=== PATIENT | male | born 1985 | race Caucasian/White ===

== ENCOUNTER → 2017-02-19 | Outpatient (CLI) | payer BC | LOC: COL.VAS 07:57 | DX: S46.291A Other injury of muscle, fascia and tendon of other parts of biceps, right arm, initial encounter (principal); T14.90 Injury, unspecified; X58.XXXA Exposure to other specified factors, initial encounter; Y93.79 Activity, other specified sports and athletics ==

== ENCOUNTER 2019-06-08 16:07 | Emergency (ER) | payer OTHER ==
[~2019-06-08] VITALS: Ht 190.5 cm; Wt 131.8 kg
[2019-06-08 16:19] VITALS: TEMP 99.4
[2019-06-08 16:57] LABS: COLLECTION METHOD CLEAN CATCH
[2019-06-08] MEDS ORDERED: XANAX 0.5MG0.5 MG PO (17:02)
[2019-06-08] MEDS ORDERED: LEXAPRO20 MG PO (17:02)
[2019-06-08] MEDS ORDERED: SUDAFED 12 HOU120 MG PO (17:02)
[2019-06-08] MEDS ORDERED: FLONASEALLERGY NS (17:02)
[2019-06-08 17:12] LABS: BASO % 0.5 % (0.0-2.0); EOS # 0.1 (0.0-0.7); EOS % 1.1 % (0-4.0); GRAN # 5.8 (1.4-6.5); GRAN % 70.4 % (42.2-75.2); HEMATOCRIT 47.7 % (42.0-52.0); HEMOGLOBIN 14.2 g/dl (13.5-18.0); LYMPH # 1.7 (1.2-3.4); MEAN CELL VOLUME 77 fl (80.0-100.0); MEAN CORPUSCULAR HEMOGLOBIN 23 pg (27.0-31.0); MEAN CORPUSCULAR HGB CONC 30 g/dl (33.0-37.0); MEAN PLATELET VOLUME 9.8 fl (7.4-10.4); MONO # 0.6 (0.1-0.6); MONO % 6.8 % (1.7-9.3); PLATELET COUNT 215 K/mm3 (130-400); REDCELL DISTRIBUTION WIDTH-CV 18.6 % (11.5-14.5)
[2019-06-08 17:15] LABS: TRICYCLIC ANTIDEPRESS URINE NEGATIVE
[2019-06-08 17:16] LABS: MUCOUS Present /lpf; PH 7 (5-8); SQUAMOUS EPITHELIAL 0-2 /hpf; URINE APPEARANCE Hazy; URINE BACTERIA None Seen /hpf; URINE BILIRUBIN Negative (NEGATIVE); URINE BLOOD Negative (NEGATIVE); URINE COLOR Yellow; URINE GLUCOSE Negative (NEGATIVE); URINE KETONE Negative (NEGATIVE); URINE LEUKOCYTE ESTERASE Negative (NEGATIVE); URINE NITRATE Negative (NEGATIVE); URINE PROTEIN(semi-quant) 1+ (NEGATIVE); URINE RBC 0-2 /hpf
[2019-06-08 17:22] LABS: ALANINE AMINOTRANSFERASE 106 U/L (21-72); ALBUMIN 4.8 gm/dL (3.5-5.0); ALKALINE PHOSPHATASE 100 U/L (50-136); ANION GAP 15 mmol/L (7-16); AST,SGOT 100 U/L (15-37); BILIRUBIN,TOTAL 1.3 mg/dL (0.0-1.0); BLOOD UREA NITROGEN 15 mg/dL (9-20); CALCIUM 9.8 mg/dL (8.4-10.2); CARBON DIOXIDE 25 mmol/L (22-30); CHLORIDE 101 mmol/L (98-107); CREATININE, serum 0.99 (0.66-1.25); GLUCOSE 98 mg/dL (74-106); POTASSIUM 4.2 mmol/L (3.4-5.0); SODIUM 140 mmol/L (137-145); TOTAL PROTEIN 9.2 gm/dL (6.4-8.2)
[2019-06-08 17:24] LABS: ACETAMINOPHEN < 10 ug/mL (10-30); ALCOHOL(ethanol),MEDICAL < 10 mg/dL; SALICYLATE < 1.0 mg/dL
[2019-06-08 19:36] VITALS: BP 125/81; PULSE 85
== END 2019-06-08 19:41 | disposition home or self-care (01) ==
LOC: COL.ER 16:07
PROVIDERS: Physician Assistant
DX: F41.9 Anxiety disorder, unspecified (principal); F31.9 Bipolar disorder, unspecified; Z79.51 Long term (current) use of inhaled steroids

== ENCOUNTER 2020-11-13 00:05 | Inpatient (IN) | payer OTHER ==
[~2020-11-13] VITALS: Ht 190.5 cm; Wt 160.0 kg
[2020-11-13] VITALS (7 sets, daily range): BP systolic 145–166; BP diastolic 78–106; PULSE 87–113; TEMP 97.6–98.7
[~2020-11-13 00:05] MED LIST: FLONASEALLERGY NS; LEXAPRO20 MG PO; SUDAFED 12 HOU120 MG PO; XANAX 0.5MG0.5 MG PO
[2020-11-13 01:05] LABS: BASO # 0.1 (0.0-0.2); BASO % 0.6 % (0.0-2.0); EOS # 0.2 (0.0-0.7); EOS % 2.4 % (0-4.0); GRAN # 6.3 (1.4-6.5); GRAN % 73.3 % (42.2-75.2); HEMATOCRIT 41.9 % (42.0-52.0); HEMOGLOBIN 13.5 g/dl (13.5-18.0); LYMPH # 1.4 (1.2-3.4); LYMPH % 16.2 % (20.0-51.0); MEAN CELL VOLUME 90 fl (80.0-100.0); MEAN CORPUSCULAR HEMOGLOBIN 29 pg (27.0-31.0); MEAN CORPUSCULAR HGB CONC 32 g/dl (33.0-37.0); MEAN PLATELET VOLUME 9.8 fl (7.4-10.4); MONO # 0.6 (0.1-0.6); MONO % 7.3 % (1.7-9.3); PLATELET COUNT 205 K/mm3 (130-400); RED BLOOD COUNT 4.64 M/mm3 (4.20-5.60)
[2020-11-13 01:13] LABS: ALANINE AMINOTRANSFERASE 123 U/L (4-49); ALBUMIN 4.5 gm/dL (3.5-5.0); ALKALINE PHOSPHATASE 149 U/L (50-136); ANION GAP 11 mmol/L (7-16); AST,SGOT 88 U/L (15-37); BLOOD UREA NITROGEN 14 mg/dL (9-20); C-REACTIVE PROTEIN 7.4 mg/dL (0.0-0.9); CALCIUM 9.1 mg/dL (8.4-10.2); CARBON DIOXIDE 22 mmol/L (22-30); CHLORIDE 105 mmol/L (98-107); CREATININE, serum 1.02 (0.66-1.25); GLUCOSE 144 mg/dL (74-106); LIPASE 43 U/L (23-300); POTASSIUM 4.3 mmol/L (3.4-5.0); SODIUM 138 mmol/L (137-145); TOTAL PROTEIN 8.8 gm/dL (6.4-8.2)
[2020-11-13 01:21] LABS: TROPONIN-I < 0.012 ng/mL (0.000-0.035)
[2020-11-13] MEDS ORDERED: SEROQUEL 1100 MG/TAB PO (03:42)
--- NOTE | 2020-11-13 07:09 | NUR ---
Patient arrived to floor around 0400. Oriented patient to room. Patient continues to have pain to right side. Explained that it could be muscle pain because all the scans did not show a fracture. Xanax and norco given. He gets short of air and becomes anxious when he is up and moving around the room. IV to right AC. All admissions assessments completed. No other changes at this time. Call light within reach.
--- NOTE | 2020-11-13 08:30 | NUR ---
Assessment complete. Pt sitting up in bed, A&O x 4, reports pain to right side 6 out of 10 with sharp pangs intermittently with deep breath and certain movement. Pt reports the pain was less when standing and ambulating in room. Pt also reports dyspnea is improved today matt with activity. IVF's infusing per orders through right AC site without s/s of complications. O2 at 2 L/min via NC. No further needs reported. Call light in reach.
--- NOTE | 2020-11-13 13:36 | NUR ---
IVF rate decreased to 75 ml/hr per orders. Pt reports pain to right side improving but still with sharp pangs intermittently, PRN medication administered per orders. No further needs reported. Call light in reach.
--- NOTE | 2020-11-13 17:31 | NUR ---
BP increasing again with DBP at 105, pt having surge of pain after coughing spell. O2 sats at 88% on 2 L/min via NC. O2 increased to 5 L/min via NC to get sats up to 91%. Pt encouraged to take deep breaths through the nose but pt falling asleep and snoring and stating that it hurts to take a deep breath. Provider notified.
--- NOTE | 2020-11-13 18:41 | NUR ---
Report with ASHLYN Porter.
--- NOTE | 2020-11-13 19:33 | NUR ---
Patient COVID result is negative. Patient moved from room 302 to room 357 at this time. He is able to ambulate to wheelchair. He is on 5 liters oxygen via nasal cannula and shows mild dyspnea on exertion, which quickly disappears with rest. He states his pain is managed at this time. Fine crackles are heard in lung bases. No edema is present. Patient is oriented to his new room and call light is in reach. Will continue to monitor.
--- NOTE | 2020-11-13 20:00 | NUR ---
INSTRUCTED PATIENT ON DEEP BREATHING AND COUGHING. ALSO DISCUSSED DIAPHRAGMATIC BREATHING TO DECREASE OXYGEN NEEDS. PATIENT RETURNED DEMONSTRATION AND VERBALIZED UNDERSTANDING OF TECHNIQUES.
--- NOTE | 2020-11-14 02:30 | NUR ---
Patient complains of increased pain under right ribs. PRN [place] is administered. Patient requests a Lidocaine patch which is similar to what he uses at home for similar pains; Order is obtained and patch applied to right side. Fluids currently infusing into right a/c IV and patient still wears 5 liters 02. Call light in reach.
[2020-11-14 03:26] VITALS: BP 152/81; PULSE 86; TEMP 97.8
[2020-11-14 05:52] LABS: BASO % 0.3 % (0.0-2.0); EOS # 0.3 (0.0-0.7); GRAN # 7.7 (1.4-6.5); GRAN % 82.4 % (42.2-75.2); HEMATOCRIT 38.2 % (42.0-52.0); LYMPH # 0.9 (1.2-3.4); LYMPH % 9.4 % (20.0-51.0); MEAN CELL VOLUME 93 fl (80.0-100.0); MEAN CORPUSCULAR HEMOGLOBIN 29 pg (27.0-31.0); MEAN CORPUSCULAR HGB CONC 31 g/dl (33.0-37.0); MEAN PLATELET VOLUME 10.5 fl (7.4-10.4); MONO # 0.4 (0.1-0.6); MONO % 4.7 % (1.7-9.3); PLATELET COUNT 153 K/mm3 (130-400); RED BLOOD COUNT 4.11 M/mm3 (4.20-5.60); REDCELL DISTRIBUTION WIDTH-CV 15.5 % (11.5-14.5)
[2020-11-14 06:02] LABS: CALCIUM 8.5 mg/dL (8.4-10.2); CREATININE, serum 0.77 (0.66-1.25); MAGNESIUM 1.8 mg/dL (1.6-2.3); POTASSIUM 4.1 mmol/L (3.4-5.0)
[2020-11-14 08:34] VITALS: BP 135/74; PULSE 103; TEMP 98.8
--- NOTE | 2020-11-14 08:49 | NUR ---
Assessment complete. Patient relaxingin bed at this time. States he feels okay, the right sided pain still lingers and he feels as if he in compensating and making it a little worse. He stated the lidocaine patch would be enough for now but would request meds if needed. IV site is CD&I, IVF continue to infuse. States he feels as if his allergies are acting up and requested allergy meds, I will request this during rounds. No other complaints at this time, pt currently satting 94 on 5L NC. Will continue to monitor. Call light is in reach.
[2020-11-14 11:37] VITALS: BP 142/80; PULSE 109; TEMP 98.1
--- NOTE | 2020-11-14 12:46 | NUR ---
Field Interviewer met with patient to discuss discharge planning. Patient lives in [place] with his Sheila (ph#[phone]) and their seven year old daughter Ashley. Patient sees Janice Timmons NP at [facility] for primary care and obtains medications from [facility]. Patient confirms he does not have active insurance coverage at this time. Patient states he was supposed to have a phone interview for a job tomorrow at 1130. Patient does not use any DME at home but is currently requiring oxygen. Patient is normally independent with ADLS. Patient does not have Advance Directives. Patient plans to return home upon discharge. SW left a message for patient's , Sheila and will continue to follow.
--- NOTE | 2020-11-14 13:29 | NUR ---
First visit from the software deployment engineer. No needs right now.
[2020-11-14 15:44] VITALS: BP 134/73; PULSE 110; TEMP 98.1
--- NOTE | 2020-11-14 17:38 | NUR ---
Patient has had an uneventful day. Rib pain and headache have been managed but he states he still feels the congestion pressure in his head that is making him uncomfortable. I assured him he had another zyrtec he could take prior to bedtime and PRN tylenol in addition to his [place]. He has minimal complaints otherwise. States that he gets a little SOB with movement but it is managable. No other needs. Call light is in reach.
--- NOTE | 2020-11-14 18:48 | NUR ---
Bedside shift report received from ASHLYN Mathur. Patient is currently awake in bed on his iPad. He is on 5 liters oxygen and states his pain is well managed at the moment.
--- NOTE | 2020-11-14 20:00 | NUR ---
Assessment complete. Patient has no pain at this time. He wears 5 liters oxygen and does not show signs of respiratory distress. He is assisted with showering and linens are changed. Call light in reach, no new concerns.
[2020-11-14 20:49] VITALS: BP 147/85; PULSE 100; TEMP 98.4
--- NOTE | 2020-11-14 22:24 | NUR ---
Patient pushes call button and states he is "having an anxiety attack" at this time. He also complains that his right rib pain is back. PRN [place] and Xanax administered.
[2020-11-15] VITALS (7 sets, daily range): BP systolic 127–148; BP diastolic 70–89; PULSE 87–107; TEMP 97.8–98.7
--- NOTE | 2020-11-15 00:57 | NUR ---
Patient complains of increased SOA at this time. He is still on 5 liters oxygen via nasal cannula; His repirations are quicker and more shallow but he does not appear to be in respiratory distress. AGUILAR Fonseca notified and a STAT ABG order is obtained. Will continue to monitor.
[2020-11-15 01:25] LABS: ARTERIAL BLD GAS O2 SATURATION 93.4 % (92-100); ARTERIAL BLD GAS TCO2 CT 25.7; ARTERIAL BLOOD GAS BASE EXCESS -1.8 (-2-2); ARTERIAL BLOOD GAS HCO3 24.3 meq/L (22-26); ARTERIAL BLOOD GAS PCO2 46.6 mmHg (35-45); ARTERIAL BLOOD GAS PO2 69.3 mmHg (80-100); ARTERIAL BLOOD GAS pH 7.34 (7.35-7.45)
--- NOTE | 2020-11-15 03:56 | NUR ---
DUO TO ABG RESULTS AUREA SHEIKH ORDERED BIPAP 16/8 AND FI02 AT 50% THEN TO BE TITRATED PER RT. PT IS ON VISION NI WELL WITH NO DISTRSES NOTED ON A MEDIUM MASK, 16/8, RATE OF 18, AND 45% FI02. WILL OBTAIN ABG AT 0500 TO ASSESS BIPAP AND SETTINGS FOR THIS PT.
[2020-11-15 05:38] LABS: ARTERIAL BLD GAS O2 SATURATION 90.9 % (92-100); ARTERIAL BLD GAS TCO2 CT 29.5; ARTERIAL BLOOD GAS BASE EXCESS 2.2 (-2-2); ARTERIAL BLOOD GAS PCO2 48.5 mmHg (35-45); ARTERIAL BLOOD GAS PO2 59.3 mmHg (80-100); ARTERIAL BLOOD GAS pH 7.38 (7.35-7.45)
--- NOTE | 2020-11-15 06:23 | NUR ---
PT TOOK OFF BIPAP AT 0450. PT WORE BIPAP FOR 1 AND A HALF HOURS OF THE NIGHT. NO DISTRESS NOTED AT THIS TIME.
--- NOTE | 2020-11-15 07:05 | NUR ---
PATIENT DID NOT TOLERATE BIPAP, WORE FOR 1.5 HOURS, STATES HE DOES HAVE SLEEP APNERA.
[2020-11-15 08:28] LABS: HEMOGLOBIN 12.3 g/dl (13.5-18.0); MEAN CELL VOLUME 93 fl (80.0-100.0); MEAN CORPUSCULAR HEMOGLOBIN 29 pg (27.0-31.0); MEAN CORPUSCULAR HGB CONC 32 g/dl (33.0-37.0); MEAN PLATELET VOLUME 10.4 fl (7.4-10.4); PLATELET COUNT 179 K/mm3 (130-400); RED BLOOD COUNT 4.18 M/mm3 (4.20-5.60); REDCELL DISTRIBUTION WIDTH-CV 15.4 % (11.5-14.5)
--- NOTE | 2020-11-15 08:31 | NUR ---
Assessment complete. Patient sitting up in bed on entry. no complaints of pain at this time, rib pain has improved. Patient states he did not have a good night and did not tolerate the bipap well. he does feel as though he is breathing a little better today. He rewuested cough drops which I will pass on to the provider. No other needs at this time. Call light is in reach.
[2020-11-15 08:39] LABS: ALBUMIN 3.7 gm/dL (3.5-5.0); BILIRUBIN,TOTAL 1.5 mg/dL (0.0-1.0); CALCIUM 8.8 mg/dL (8.4-10.2); CREATININE, serum 0.84 (0.66-1.25); MAGNESIUM 1.9 mg/dL (1.6-2.3); POTASSIUM 3.8 mmol/L (3.4-5.0); TOTAL PROTEIN 7.7 gm/dL (6.4-8.2)
--- NOTE | 2020-11-15 13:42 | NUR ---
BIPAP REMOVED FROM ROOM, PATIENT REFUSES
--- NOTE | 2020-11-15 17:25 | NUR ---
Patient has napped on and off through most of the day. He remains pretty congested and states he thinks his allergies are what is causing the discomfort. PRN pain medication provided once through shift. Patient remains on oxymax as he mouth breaths while sleeping and while awake, he is aware to use nasal cannula while eating to prevent desatting. Continuing to monitor. Call light is in reach.
--- NOTE | 2020-11-15 20:00 | NUR ---
Report received, assumed care for quilter fixer. Assessment complete. A&Ox3-drowsy. VS stable. Denies pain/nausea. Short of breath with activity. O2 Via oxymask @5L. Tele showing SR. INT ot right AC flushes without difficulty. Noted to have bilat coarse lung sounds to bases. Plan of care discussed for this shift to include HS meds/antibiotics/calling for questions/concerns. Verbalizes understanding/denies quesitons/concerns. Call light in reach. Will monitor.
--- NOTE | 2020-11-15 23:20 | NUR ---
Called with c/o pain to right side/back/flank. Rating pain 5/10 on pain scale-described as sharp intermittent pains. Hydrocodone given per dr order. Call light in reach. Will monitor.
[2020-11-16] VITALS (7 sets, daily range): BP systolic 120–156; BP diastolic 71–78; PULSE 102–111; TEMP 98–100.7
--- NOTE | 2020-11-16 05:26 | NUR ---
Slept well after receiving hydrocodone for back/flank pain. O2 remained at 5L/NC. Tried to use the oxymask but stated he kept taking it off in his sleep so requested to wear NC instead. VS remained stable. IV to right forearm flushes without difficulty. No s/s of infiltration noted. Call light in reach. Will monitor.
--- NOTE | 2020-11-16 06:20 | NUR ---
Message left for Dr. Perdue of need for consult.
[2020-11-16 06:37] LABS: HEMOGLOBIN 11.3 g/dl (13.5-18.0); MEAN CELL VOLUME 94 fl (80.0-100.0); MEAN CORPUSCULAR HEMOGLOBIN 29 pg (27.0-31.0); MEAN CORPUSCULAR HGB CONC 31 g/dl (33.0-37.0); PLATELET COUNT 173 K/mm3 (130-400); RED BLOOD COUNT 3.89 M/mm3 (4.20-5.60); REDCELL DISTRIBUTION WIDTH-CV 15.5 % (11.5-14.5)
[2020-11-16 06:49] LABS: CALCIUM 8.7 mg/dL (8.4-10.2); CREATININE, serum 0.81 (0.66-1.25); POTASSIUM 3.8 mmol/L (3.4-5.0)
[2020-11-16 06:53] LABS: HEMATOCRIT 36.4 % (42.0-52.0)
--- NOTE | 2020-11-16 10:04 | NUR ---
Pt assessment completed and charted, medications administered per jan. Pt A&O, independent in room, on room air, breathing is labored, pt on 3.5LHFNC. Pt SOB and worsens w/ exertion. Pt c/o some rt sd mid/low back pain when he coughs. Lidocaine applied per order. Pt denies any chest pain, dizziness, N/V/D, abd pain. Pt has RAC IV that flushes w/o issues. LS diminished throghout, no further needs expressed at this time. Call light within reach.
--- NOTE | 2020-11-16 12:17 | NUR ---
Pt temp 100.7 at noon vitals, tylenol prn administered. no further needs
--- NOTE | 2020-11-16 16:05 | NUR ---
1530: Pt down for thoracentesis at this time w/ radiology, consent signed and on chart.
--- NOTE | 2020-11-16 16:55 | NUR ---
Pt back from bandar hopkinsaid to Rt mid/upper back, site CDI. No issues. Pt on 4L NC at this time.
--- NOTE | 2020-11-16 17:34 | NUR ---
Pt states pain has improved, provided w/ pillows, had thora to rt sd done, lidocaine patch in place.
[2020-11-16 17:35] LABS: TOTAL PROTEIN,PLEURAL FLUID 5.4 gm/dL
--- NOTE | 2020-11-17 01:25 | NUR ---
Patient sitting up in bed upon the room. Patient alert and oriented. Patient c/o SOB and dyspnea at this time. Patient is currently on oxygen 3L via NC. Called RT and asked RT for brething treatment. IV to right AC has no s/s of complications. Scheduled meds given per order. Sputum collected and sent to lab. Call light within reach. Patient denies any needs at this time.
--- NOTE | 2020-11-17 02:53 | NUR ---
Patient awake and sitting up in bed at this time. Patient appears anxious. PRN Xanax given at 02:50 am for anxiety. Call light within reach. Patient denies further needs at this time.
[2020-11-17 05:16] VITALS: BP 144/72; PULSE 97; TEMP 98.6
[2020-11-17 07:07] LABS: BASO % 0.6 % (0.0-2.0); EOS # 0.2 (0.0-0.7); EOS % 2.3 % (0-4.0); GRAN # 4.7 (1.4-6.5); GRAN % 71.9 % (42.2-75.2); HEMOGLOBIN 10.6 g/dl (13.5-18.0); LYMPH % 15.1 % (20.0-51.0); MEAN CELL VOLUME 93 fl (80.0-100.0); MEAN CORPUSCULAR HEMOGLOBIN 30 pg (27.0-31.0); MEAN CORPUSCULAR HGB CONC 32 g/dl (33.0-37.0); MEAN PLATELET VOLUME 9.7 fl (7.4-10.4); MONO # 0.6 (0.1-0.6); MONO % 8.7 % (1.7-9.3); PLATELET COUNT 181 K/mm3 (130-400); RED BLOOD COUNT 3.58 M/mm3 (4.20-5.60); REDCELL DISTRIBUTION WIDTH-CV 15.8 % (11.5-14.5)
[2020-11-17 07:11] LABS: HEMATOCRIT 33.2 % (42.0-52.0)
[2020-11-17 07:24] LABS: CALCIUM 8.7 mg/dL (8.4-10.2); CREATININE, serum 0.78 (0.66-1.25); POTASSIUM 3.5 mmol/L (3.4-5.0)
[2020-11-17 08:39] VITALS: BP 133/76; PULSE 100; TEMP 99.1
--- NOTE | 2020-11-17 10:02 | NUR ---
Pt assessment completed and charted, medications administered per jan. pt laying in bed, on 4L NC, satting well, pt c/o SOB when ambulating, denies CP, dizziness, N/V/D. Pt c/o of chronic pain when coughing but refused lidocaine patch at this time, states he does feel much better than yesterday. Pt A&O, independent in room, RAC w/ abx running. Pt states he has a productive cough, this nurse has not observed. No further needs at this time.
[2020-11-17 11:32] VITALS: BP 145/87; PULSE 108; TEMP 99.6
[2020-11-17 14:43] LABS: PLEURAL FLUID RBC 1000 /mm3 (0-0); PLEURAL FLUID WBC 1532 /mm3
[2020-11-17 14:44] LABS: PLEURAL FLUID APPEARANCE CLOUDY; PLEURAL FLUID COLOR YELLOW
--- NOTE | 2020-11-17 14:56 | NUR ---
Tanisha, Financial Counselor completed Financial Assistance Application with patient. SHAHAB obtained signature from patient and returned form to Tanisha. SHAHAB will continue to follow. Patient is still requiring oxygen. If patient requires home oxygen at discharge it will have to be obtained from [facility].
[2020-11-17 17:28] VITALS: BP 133/83; PULSE 109; TEMP 101
--- NOTE | 2020-11-17 18:18 | NUR ---
Pt to have VATs procedure tomorrow 11/18, consent signed, pt verbalized understanding of procedure.
[2020-11-17 20:00] VITALS: BP 128/82; PULSE 101; TEMP 98.1
[2020-11-17 23:44] VITALS: BP 137/84; PULSE 97; TEMP 98
[2020-11-18] VITALS (294 sets, daily range): BP systolic 113–141; BP diastolic 72–104; PULSE 84–100; TEMP 97.8–98.8; O2SAT 88–96
--- NOTE | 2020-11-18 00:08 | NUR ---
Patient was sitting up in bed upon enter the room. Patient alert and oriented x4. Patient denies any chest pain or discomfort. SOB and tachypnea noted while at rest. SPO2 96% on 5L oxygen via NC. Patient states that he just went to the bathroom and nasal canula fell off while in the bathroom. Denies any dizziness upon get up and ambulating to the bathroom. Occasional non-productive moist cough noted. Scheduled meds given per JAN. PRN Xanax given per patient request for anxiety. Right AC IV site has no s/s of complications. Ice water offered per patient request. Call light within reach. Patient denies further needs at this time.
--- NOTE | 2020-11-18 05:26 | NUR ---
Patient slept on and off over the night. NPO maintained from midnight for procedure today. Patient gets more anxious about thoracoscopy procedure for today. PRN Xanax given at 02:45 am per patient request. O2 94% on Oxygen 5L via NC at this time. Call light within reach. Patient denies further needs at this time.
--- NOTE | 2020-11-18 07:28 | NUR ---
Pt assessment completed and charted, medications administered per jan. Pt A&O, independent in room, on 5L NC, satting low 90s. Pt has RAC IV w/ abx running at this time, no issues noted. Pulses strong bilaterally, BS active, no edema noted. Rt sd lung mcdowell diminished throughout, Lt sd lung mcdowell cta. Pt denies any pain at this time, refused lidocaine patch. breathing is labored, MOORE, slightly tachpneic, afebrile. Pt denies dizziness, CP, N/V/D, general pain at this time. Call light within reach, pt NPO for VATS procedure later today.
[2020-11-18 08:29] LABS: HEMOGLOBIN 10.3 g/dl (13.5-18.0); MEAN CELL VOLUME 92 fl (80.0-100.0); MEAN CORPUSCULAR HEMOGLOBIN 29 pg (27.0-31.0); MEAN CORPUSCULAR HGB CONC 31 g/dl (33.0-37.0); MEAN PLATELET VOLUME 9.9 fl (7.4-10.4); PLATELET COUNT 169 K/mm3 (130-400); RED BLOOD COUNT 3.56 M/mm3 (4.20-5.60); REDCELL DISTRIBUTION WIDTH-CV 15.9 % (11.5-14.5)
[2020-11-18 08:31] LABS: HEMATOCRIT 32.8 % (42.0-52.0)
[2020-11-18 08:32] LABS: INR 1.3 (0.8-3.0); PROTHROMBIN TIME 15.1 SECONDS (9.7-12.8)
[2020-11-18 08:36] LABS: ALBUMIN 3.4 gm/dL (3.5-5.0); BILIRUBIN,TOTAL 1.4 mg/dL (0.0-1.0); CALCIUM 8.7 mg/dL (8.4-10.2); CREATININE, serum 1.31 (0.66-1.25); POTASSIUM 3.6 mmol/L (3.4-5.0); TOTAL PROTEIN 7.4 gm/dL (6.4-8.2)
[2020-11-18 09:30] LABS: BAND 15 % (0-10); EOSINOPHIL 3 % (0-4); LYMPHOCYTE 14 % (20.0-51.0); NEUTROPHILS 58 % (42.0-75.2)
[2020-11-18 09:33] LABS: ANISOCYTOSIS 1+; PLATELET ESTIMATE NORMAL (NORMAL)
[2020-11-18 09:34] LABS: HYPOCHROMIA 2+
--- NOTE | 2020-11-18 11:56 | NUR ---
Pt down for procedure at this time, LR hung to RAC. No issues. Pt verbalized understanding. All questions answered. Will call report to ASHLYN Rosales on surgical.
--- NOTE | 2020-11-18 12:37 | NUR ---
Report called to ASHLYN Rosales, all belonging transported to Room 322.
--- NOTE | 2020-11-18 16:00 | NUR ---
Patient arrived from OR on ventilator. MANGANESE HEATER at bedside with patient. RT also at bedside. Patient is stable. Called to notify him patient is here. He gave verbal phone orders for vent settings and sedation. He will be back to see patient in the morning.
[2020-11-18 16:48] LABS: ARTERIAL BLD GAS O2 SATURATION 95.1 % (92-100); ARTERIAL BLD GAS TCO2 CT 27.2; ARTERIAL BLOOD GAS BASE EXCESS -0.1 (-2-2); ARTERIAL BLOOD GAS HCO3 25.7 meq/L (22-26); ARTERIAL BLOOD GAS PCO2 46.7 mmHg (35-45); ARTERIAL BLOOD GAS PO2 84.2 mmHg (80-100); ARTERIAL BLOOD GAS pH 7.36 (7.35-7.45)
[2020-11-18 17:22] LABS: BASO % 0.4 % (0.0-2.0); EOS # 0.1 (0.0-0.7); EOS % 0.8 % (0-4.0); GRAN # 6.6 (1.4-6.5); GRAN % 84.2 % (42.2-75.2); LYMPH # 0.6 (1.2-3.4); LYMPH % 7.9 % (20.0-51.0); MEAN CELL VOLUME 94 fl (80.0-100.0); MEAN CORPUSCULAR HEMOGLOBIN 29 pg (27.0-31.0); MEAN CORPUSCULAR HGB CONC 31 g/dl (33.0-37.0); MEAN PLATELET VOLUME 9.8 fl (7.4-10.4); MONO # 0.3 (0.1-0.6); MONO % 3.2 % (1.7-9.3); PLATELET COUNT 185 K/mm3 (130-400); RED BLOOD COUNT 3.43 M/mm3 (4.20-5.60)
[2020-11-18 17:34] LABS: HEMATOCRIT 32.1 % (42.0-52.0)
[2020-11-18 17:37] LABS: CALCIUM 8.4 mg/dL (8.4-10.2); CREATININE, serum 1.58 (0.66-1.25); POTASSIUM 4.2 mmol/L (3.4-5.0)
--- NOTE | 2020-11-18 19:15 | NUR ---
RECEIVED REPORT FROM ASHLYN BILL.
--- NOTE | 2020-11-18 20:19 | NUR ---
NO CHEST TUBE CLAMP AVAILABLE AT [facility], CLIENT TECHNICAL SPECIALIST NOTIFIED.
--- NOTE | 2020-11-18 20:46 | NUR ---
CHEST TUBE CLAMP AT BEDSIDE.
[2020-11-19] VITALS (1152 sets, daily range): BP systolic 102–108; BP diastolic 59–70; PULSE 69–88; TEMP 98–98.7; O2SAT 58–100
--- NOTE | 2020-11-19 03:00 | NUR ---
PT WS ABLE TO WAKE UP AFTER TURNING SEDATION DOWN. PT FOLLOWED SIMPLE COMMANDS AND WAS GIVING A THUMBS UP AFTER EXPLAINING PLAN OF CARE IN THE MORNING.
[2020-11-19 04:42] LABS: ARTERIAL BLD GAS O2 SATURATION 93.3 % (92-100); ARTERIAL BLD GAS TCO2 CT 28.9; ARTERIAL BLOOD GAS BASE EXCESS 2.2 (-2-2); ARTERIAL BLOOD GAS HCO3 27.5 meq/L (22-26); ARTERIAL BLOOD GAS PO2 72.6 mmHg (80-100); ARTERIAL BLOOD GAS pH 7.39 (7.35-7.45)
--- NOTE | 2020-11-19 04:50 | NUR ---
PT NOW ON WEANING TRIAL.
[2020-11-19 06:05] LABS: MEAN CELL VOLUME 93 fl (80.0-100.0); MEAN CORPUSCULAR HGB CONC 31 g/dl (33.0-37.0); PLATELET COUNT 166 K/mm3 (130-400); RED BLOOD COUNT 3.05 M/mm3 (4.20-5.60); REDCELL DISTRIBUTION WIDTH-CV 15.9 % (11.5-14.5)
[2020-11-19 06:07] LABS: HEMATOCRIT 28.3 % (42.0-52.0); HEMOGLOBIN 8.7 g/dl (13.5-18.0); MEAN CORPUSCULAR HEMOGLOBIN 29 pg (27.0-31.0)
[2020-11-19 06:15] LABS: BILIRUBIN,TOTAL 0.8 mg/dL (0.0-1.0); CALCIUM 8.1 mg/dL (8.4-10.2); CREATININE, serum 1.67 (0.66-1.25); TOTAL PROTEIN 6.5 gm/dL (6.4-8.2)
[2020-11-19 06:33] LABS: BAND 1 % (0-10); LYMPHOCYTE 10 % (20.0-51.0); METAMYELOCYTE 1 % (0-0); NEUTROPHILS 87 % (42.0-75.2); PLATELET ESTIMATE NORMAL (NORMAL)
--- NOTE | 2020-11-19 07:14 | NUR ---
REPORT GIVEN TO ASHLYN BILL.
[2020-11-19 11:03] LABS: ARTERIAL BLD GAS O2 SATURATION 95.7 % (92-100); ARTERIAL BLD GAS TCO2 CT 25.7; ARTERIAL BLOOD GAS BASE EXCESS 0.6 (-2-2); ARTERIAL BLOOD GAS HCO3 24.6 meq/L (22-26); ARTERIAL BLOOD GAS PCO2 37.3 mmHg (35-45); ARTERIAL BLOOD GAS PO2 82.3 mmHg (80-100); ARTERIAL BLOOD GAS pH 7.44 (7.35-7.45)
--- NOTE | 2020-11-19 11:08 | NUR ---
patient extubated to 6L OM. He is satting great at 95% will wean him through out the day. OG tube also removed.
--- NOTE | 2020-11-19 12:00 | NUR ---
at bedside/. He said ok to turn CT off from wall suction.
[2020-11-20] VITALS (853 sets, daily range): BP systolic 103–130; BP diastolic 69–83; PULSE 57–111; TEMP 97.6–98; O2SAT 56–100
[2020-11-20 05:54] LABS: MEAN CELL VOLUME 96 fl (80.0-100.0); MEAN CORPUSCULAR HGB CONC 31 g/dl (33.0-37.0); PLATELET COUNT 223 K/mm3 (130-400); RED BLOOD COUNT 3.14 M/mm3 (4.20-5.60); REDCELL DISTRIBUTION WIDTH-CV 16.3 % (11.5-14.5)
[2020-11-20 06:04] LABS: CALCIUM 8.3 mg/dL (8.4-10.2); CREATININE, serum 1.72 (0.66-1.25); POTASSIUM 3.6 mmol/L (3.4-5.0)
[2020-11-20 06:09] LABS: HEMOGLOBIN 9.3 g/dl (13.5-18.0); MEAN CORPUSCULAR HEMOGLOBIN 30 pg (27.0-31.0)
--- NOTE | 2020-11-20 06:49 | NUR ---
Pt had uneventful night. Had a difficult time sleeping. The pain was intermittent depending on his movement. The chest tube dressing is intact, it does have some drainage, to the gauze, but it is not saturated. There are no bubbles in the chamber, so there is no airleak at this time. The dressing may need to be changed today. Pt has had several bm's and gas as well as lots of output through the night. The plan for this patient is to leave ICU to the med/surg floor. There are no other concerns at this time. Will endorse to day shift, RN.
--- NOTE | 2020-11-20 08:00 | NUR ---
Report Recieved from ASHLYN Snow
[2020-11-20 08:20] LABS: BAND 6 % (0-10); LYMPHOCYTE 14 % (20.0-51.0); MYELOCYTE 1 % (0-0); NEUTROPHILS 74 % (42.0-75.2); PLATELET ESTIMATE NORMAL (NORMAL)
[2020-11-20 08:21] LABS: ANISOCYTOSIS 1+; HYPOCHROMIA 2+
--- NOTE | 2020-11-20 13:28 | NUR ---
PT CURRENTLY ON BEDSIDE COMMODE, VSS, DENIES PAIN AT THIS TIME. CT REMAINS IN PLACE. DR ALMONTE CALLED FOR UPDATE. PT GIVEN BED ON MS, WILL TX AFTER REPORT GIVEN. PT ABLE TO SPEAK TO FAMILY AND UPDATE THEM ABOUT CARE. WILL CONTINIUE TO MONITOR ANS UPDATE PROVIDERS NEEDED.
--- NOTE | 2020-11-20 17:37 | NUR ---
Patient arrived to room 323 from ICU around this time, he is alert/oriented, vital signs stable, pain controlle and nurse reports pain meds givnen prior to tranferring from ICU, he denies othr need at this time, will continue to monitor
--- NOTE | 2020-11-20 20:42 | NUR ---
PT IN BED WITH HOB ELEVATED TO 60 DEGREE ANGLE. A/O X3 GAVE XANAX FOR ANXIETY, AND PT AMBULATED TO BATHROOM. PT HAS NO OTHER NEEDS AT THIS TIME, CALL LIGHT WITHIN REACH.
[2020-11-21] VITALS (10 sets, daily range): BP systolic 75–129; BP diastolic 42–72; PULSE 101–121; TEMP 97.6–101.5
--- NOTE | 2020-11-21 01:54 | NUR ---
DECLINE NOTIFIED DREW SHEIKH, OF PT'S CHANGE IN CONDITION. PT HAD SPIKED A TEMP OF 100.9 (GAVE TYLENOL), O2 SATURATIONS AT 85% ON ROOM AIR (PLACED OXYGEN ON AT 2L/NC NOW 94%), AND RESP LABORED. PT SEEMS WEAK AT THIS TIME. BARBARA SHEIKH ADVISED THAT SHE WILL COME AND SEE THE PT HER SHORTLY.
[2020-11-21 05:56] LABS: COLLECTION METHOD CLEAN CATCH
[2020-11-21 06:01] LABS: MUCOUS Present /lpf; PH 5 (5-8); SQUAMOUS EPITHELIAL None Seen /hpf; URINE APPEARANCE Clear; URINE BACTERIA None Seen /hpf; URINE BILIRUBIN Negative (NEGATIVE); URINE BLOOD Negative (NEGATIVE); URINE COLOR Yellow; URINE GLUCOSE Negative (NEGATIVE); URINE KETONE Negative (NEGATIVE); URINE LEUKOCYTE ESTERASE Negative (NEGATIVE); URINE NITRATE Negative (NEGATIVE); URINE PROTEIN(semi-quant) Negative (NEGATIVE); URINE RBC 0-2 /hpf; URINE UROBILINOGEN Negative (NEGATIVE)
[2020-11-21 07:03] LABS: BASO % 0.3 % (0.0-2.0); EOS # 0.1 (0.0-0.7); EOS % 0.6 % (0-4.0); GRAN # 6.7 (1.4-6.5); GRAN % 85.3 % (42.2-75.2); LYMPH # 0.7 (1.2-3.4); LYMPH % 9.2 % (20.0-51.0); MEAN CELL VOLUME 94 fl (80.0-100.0); MEAN CORPUSCULAR HGB CONC 31 g/dl (33.0-37.0); MEAN PLATELET VOLUME 10.5 fl (7.4-10.4); MONO # 0.3 (0.1-0.6); MONO % 3.2 % (1.7-9.3); PLATELET COUNT 268 K/mm3 (130-400); REDCELL DISTRIBUTION WIDTH-CV 16.5 % (11.5-14.5)
[2020-11-21 07:04] LABS: ALBUMIN 3.2 gm/dL (3.5-5.0); BILIRUBIN,TOTAL 0.9 mg/dL (0.0-1.0); CALCIUM 8.1 mg/dL (8.4-10.2); CREATININE, serum 1.95 (0.66-1.25); HEMOGLOBIN 9.8 g/dl (13.5-18.0); MEAN CORPUSCULAR HEMOGLOBIN 29 pg (27.0-31.0); POTASSIUM 3.5 mmol/L (3.4-5.0); TOTAL PROTEIN 6.9 gm/dL (6.4-8.2)
--- NOTE | 2020-11-21 07:23 | NUR ---
SHIFT SUMMARY: WHEN PT GOT UP TO GO TO THE BATHROOM, HE HAD INCREASED SOB, AND HEART RATE IN THE 150s. THE PT'S STOOL APPEARED TO HAVE BLOOD IN THE STOOL. ADVISED DREW SHEIKH, AND SHE PUT IN AN ORDER FOR AN OCCULT STOOL, WHICH WAS POSITIVE. PT HAD A TEMP DURING THE NIGHT WHICH HE RECEIVED TYLENOL FOR, TEMP WENT UP TO 101.5 (DREW SHEIKH AWARE), BUT AT 0400 HIS TEMP WENT BACK DOWN TO 98.0. PT ADVISES THAT HE IS AWAYS HOT. PT DID NOT SLEEP MUCH, AND DID NOT COMPLAIN OF PAIN OR DISCOMFORT. PT ONLY WAS ANXIOUS AND WANTED XANAX.
--- NOTE | 2020-11-21 11:27 | NUR ---
SW attended clinical rounds. The patient's kidney function has slowely worsened. Nephrology to be consulted. SW then met with the patient to follow up. The patient states that this weekend did not go well and that he will have to be here a few more days. He still plans on returning home with his upon discharge. SW to continue to follow.
--- NOTE | 2020-11-21 23:52 | NUR ---
ALEX Carballo notified of most recent blood pressures. 500mL IV fluid bolus initiated to run over 1hr per provider.
[2020-11-22] VITALS (756 sets, daily range): BP systolic 97–128; BP diastolic 42–83; PULSE 102–117; TEMP 97.5–99.5; O2SAT 47–100
[2020-11-22 06:30] LABS: MEAN CELL VOLUME 95 fl (80.0-100.0); MEAN CORPUSCULAR HGB CONC 31 g/dl (33.0-37.0); MEAN PLATELET VOLUME 10.7 fl (7.4-10.4); PLATELET COUNT 226 K/mm3 (130-400); RED BLOOD COUNT 3.03 M/mm3 (4.20-5.60); REDCELL DISTRIBUTION WIDTH-CV 17.2 % (11.5-14.5)
[2020-11-22 06:38] LABS: HEMATOCRIT 28.8 % (42.0-52.0); MEAN CORPUSCULAR HEMOGLOBIN 30 pg (27.0-31.0)
[2020-11-22 06:39] LABS: ALBUMIN 3.2 gm/dL (3.5-5.0); BILIRUBIN,TOTAL 1.4 mg/dL (0.0-1.0); CALCIUM 7.6 mg/dL (8.4-10.2); CREATININE, serum 3.19 (0.66-1.25); MAGNESIUM 2.1 mg/dL (1.6-2.3); POTASSIUM 3.5 mmol/L (3.4-5.0); TOTAL PROTEIN 6.8 gm/dL (6.4-8.2)
[2020-11-22 07:44] LABS: ANISOCYTOSIS 1+; BAND 20 % (0-10); LYMPHOCYTE 3 % (20.0-51.0); NEUTROPHILS 77 % (42.0-75.2)
--- NOTE | 2020-11-22 07:45 | NUR ---
PATIENT REPORTED TO HAVE HAD SOME SOFT B/P OVER NIGHT AND WAS GIVEN A FLUID BOLUS. NOTED A DOCUMENTED B/P IN THE 80'S PRIOR TO NARCOTICS. PATIENT ALSO HAD A NEPHROLOGY CONSULT DUE TO ELEVATED BUN & CREATININE. CREATININE THIS AM IS 3.19 WITH BUN OF 35. PATIENT C/O "NOT FEELING RIGHT". NOTED WHEEZING, C/O SOA, AND BUE & BLE EDEMA. RIGHT HAND IV INFILTRATED WITH +4 PITTING EDEMA NOTED. CHEST TUBE TO RIGHT SIDE TO WATERSEAL. NOTED CHEST TUBE FLUIDS ALL MIXED AND NO FLUCTUATION NOTED WITH INSPIRATIONS. PATIENT REPORTS "THE YOUNG GIRL HELPING ME KNOCKED IT OVER". AVIONICS ELECTRICAL ENGINEER REPORTS SHE FOUND THE CHEST TUBE KNOCKED OVER WHEN SHE ENTERED THE ROOM THIS AM BUT DID NOT TELL NURSING. REPLACED CHEST TUBE WITH NEW CONTAINER. CHEST TUBE BACK TO WATER SEAL. RIGHT CHEST TUBE DRESSING IS CD&I WITH FOAM TAPE. BILATERAL LUNG FIELD BASES DEMINISHED WITH INSP. WHEEZE NOTED. HOSPITALIST & RT NOTIFIED. PATIENT IS ANXIOUS, GAVE PRN XANAX WITH AM MEDS. IV VANCO INFUSING INTO RIGHT AC IV. CALLED FOR STAT PICC LINE.
[2020-11-22 07:46] LABS: PLATELET ESTIMATE NORMAL (NORMAL)
--- NOTE | 2020-11-22 08:05 | NUR ---
HOSPITALIST AT BEDSIDE. PATIENT GOIND DOWN TO ICU. AIVS WILL MEET PATIENT IN ICU FOR PICC PLACEMENT. SURGEON NOTIFIED. NEPHROLOGY NOTIFIED AND DOWN IN ICU. NOTED ELEVATED HR OF 115-120 ON TELE. 96-98% ON 2L. B/P OF 116/71. NOTED INCREASE IN WBC FROM 7.9 YESTERDAY TO 13.8 THIS AM. PATIENT IS PALE, DIAPHORRETIC, AND REPORTS HE JUST DOESN'T FEEL RIGHT. PATIENT NOW STATES HE C/O LEFT SIDE BACK/SHOULDER PAIN LAST NIGHT AND WAS GIVEN PAIN PILLS. PATIENT REPORTS THIS PAIN IS GETTING WORSE. SEE ORDERS. PATIENT GOING DOWN TO ICU.
--- NOTE | 2020-11-22 08:20 | NUR ---
PATIENT NOW IN ICU 6. AIVS, POKER PROP PLAYER AND HOSPITALIST AT BEDSIDE. ELAM ALSO PLACED. LABS DRAWN AND PENDING. ABG'S DRAWN AND PENDING. REPEAT CXR ORDERED. SEE ORDERS.
--- NOTE | 2020-11-22 08:30 | NUR ---
REPORT GIVEN TO LATIN PROFESSOR
--- NOTE | 2020-11-22 09:00 | NUR ---
Patient brought to ICU, Technical Support Specialist and Dr. He at bedside. Report received from ASHLYN Jolly Surgical Floor. Patient is drowsy, lethargic and restless. Chest tube in place on right side.Currently to water seal.
[2020-11-22 09:07] LABS: ARTERIAL BLD GAS O2 SATURATION 93.7 % (92-100); ARTERIAL BLD GAS TCO2 CT 20.4; ARTERIAL BLOOD GAS BASE EXCESS -4.1 (-2-2); ARTERIAL BLOOD GAS HCO3 19.5 meq/L (22-26); ARTERIAL BLOOD GAS PCO2 30.4 mmHg (35-45); ARTERIAL BLOOD GAS PO2 71.1 mmHg (80-100); ARTERIAL BLOOD GAS pH 7.43 (7.35-7.45)
[2020-11-22 09:50] LABS: MEAN CELL VOLUME 93 fl (80.0-100.0); MEAN CORPUSCULAR HGB CONC 32 g/dl (33.0-37.0); MEAN PLATELET VOLUME 10.9 fl (7.4-10.4); PLATELET COUNT 221 K/mm3 (130-400); RED BLOOD COUNT 2.97 M/mm3 (4.20-5.60)
[2020-11-22 10:01] LABS: BILIRUBIN,TOTAL 1.1 mg/dL (0.0-1.0); CALCIUM 7.6 mg/dL (8.4-10.2); CREATININE, serum 2.77 (0.66-1.25); POTASSIUM 3.5 mmol/L (3.4-5.0); TOTAL PROTEIN 6.5 gm/dL (6.4-8.2)
[2020-11-22 10:10] LABS: HEMATOCRIT 27.5 % (42.0-52.0); HEMOGLOBIN 8.7 g/dl (13.5-18.0); MEAN CORPUSCULAR HEMOGLOBIN 29 pg (27.0-31.0)
[2020-11-22 10:13] LABS: ANISOCYTOSIS 1+; BAND 18 % (0-10); EOSINOPHIL 3 % (0-4); HYPOCHROMIA 1+; LYMPHOCYTE 5 % (20.0-51.0); NEUTROPHILS 72 % (42.0-75.2); PLATELET ESTIMATE NORMAL (NORMAL)
[2020-11-22 10:17] LABS: TROPONIN-I 0.61 ng/mL (0.000-0.035)
--- NOTE | 2020-11-22 10:30 | NUR ---
Ativan given for agitation, per Dr. He order. This helps a small amount in decreasing anxiety for this patient.
--- NOTE | 2020-11-22 12:30 | NUR ---
Dr. He called regarding given xanax early d/t continued restlessness, agitation and confusion. Patient tries to get out of bed multiple times saying he needs to use the bathroom and then saying he needs to make sure his feet still work. I encourage the patient to lay back and relax. Respiratory rate has been in the 40s since arrival and has not improved. ABG reviewed. Patient remains on 2L O2. No further orders from Dr. Moncada for this patient as he feels it is all psych and delerium related.
--- NOTE | 2020-11-22 16:00 | NUR ---
Patient tries to get out of bed again. Chest tube dressing comes off d/t persistent confusion/delerium and restlessness. chest tube dressing changed and reinforced with foam tape.
--- NOTE | 2020-11-22 18:30 | NUR ---
Multiple doses of [place], dilaudid, ativan given for pain and anxiety today. Patient continues to be restless and trying to get out of bed for multiple reasons that are not consistent with hospital stay. Bed Alarm on for patient safety
--- NOTE | 2020-11-22 23:30 | NUR ---
tried calling saida for update and was unable to answer and just left a voice message.
[2020-11-23] VITALS (1187 sets, daily range): BP systolic 97–117; BP diastolic 55–97; PULSE 72–109; TEMP 98–99.3; O2SAT 42–100
--- NOTE | 2020-11-23 03:16 | NUR ---
loading dose of 1 mcg/kg infusing.
--- NOTE | 2020-11-23 04:16 | NUR ---
Continuing to increase patients precedex gtt and patient is becoming increasingly more agitated and beginning to pull at [place], IV lines and monitor chords. Placed mitts on patient to prevent patient from pulling out toussaint and IV lines. Will continue to monitor.
[2020-11-23 05:24] LABS: MEAN CELL VOLUME 93 fl (80.0-100.0); MEAN CORPUSCULAR HGB CONC 32 g/dl (33.0-37.0); MEAN PLATELET VOLUME 10.4 fl (7.4-10.4); PLATELET COUNT 206 K/mm3 (130-400); RED BLOOD COUNT 2.81 M/mm3 (4.20-5.60); REDCELL DISTRIBUTION WIDTH-CV 17.2 % (11.5-14.5)
[2020-11-23 05:33] LABS: HEMATOCRIT 26.2 % (42.0-52.0); HEMOGLOBIN 8.4 g/dl (13.5-18.0); MEAN CORPUSCULAR HEMOGLOBIN 30 pg (27.0-31.0)
[2020-11-23 05:38] LABS: CREATININE, serum 2.87 (0.66-1.25); POTASSIUM 3.7 mmol/L (3.4-5.0)
[2020-11-23 06:04] LABS: ANISOCYTOSIS 1+; BAND 9 % (0-10); HYPOCHROMIA 1+; LYMPHOCYTE 1 % (20.0-51.0); NEUTROPHILS 88 % (42.0-75.2); PLATELET ESTIMATE NORMAL (NORMAL)
--- NOTE | 2020-11-23 07:11 | NUR ---
report given to ASHLYN Thomas.
--- NOTE | 2020-11-23 10:00 | NUR ---
PATIENT VERY AGITATED, PRECEDEX INFUSING AND DOSE INCREASED. HE CONTINUES TO TRY TO GET OUT OF BED. HALDOL ORDERS RECEIVED FROM DR. QUINTANILLA. HIS RESPIRATORY RATE CONTINUES TO BE INCREASED AND BREATHING SHALLOW. CHEST XR, ABG ORDERED BY DR. QUINTANILLA.
[2020-11-23 10:24] LABS: ARTERIAL BLD GAS O2 SATURATION 84.9 % (92-100); ARTERIAL BLOOD GAS HCO3 20.6 meq/L (22-26); ARTERIAL BLOOD GAS PCO2 45.2 mmHg (35-45); ARTERIAL BLOOD GAS PO2 58.6 mmHg (80-100); ARTERIAL BLOOD GAS pH 7.28 (7.35-7.45)
--- NOTE | 2020-11-23 10:30 | NUR ---
Ativan given for agitation, per Dr. He order. This helps a small amount in decreasing anxiety for this patient.
--- NOTE | 2020-11-23 17:25 | NUR ---
PRECEDEX HAS BEEN ON HOLD FOR APPROXIMATELY ONE HOUR D/T DEEP SEDATION. HE CONTINUES TO BE VERY SOMNOLENT, HE WEAKLY CRIES OUT WITH PAINFUL STIMULI. PATIENT CONTINUES TO MAINTAIN HIS AIRWAY, BUT HIS BREATHING IS SHALLOW AND RESPIRATORY RATE IS 30 BREATHS/MINUTE. STANLEY CONKLIN, PLACED PATIENT ON AIRVO TO ASSIST WITH HUMIDITY OF O2 ADMINISTRATION. MOUTH MOISTURIZER ADMINISTERED TO PATIENT'S LIPS AND MOUTH.
--- NOTE | 2020-11-23 17:25 | NUR ---
CONTACTED DR. QUINTANILLA TO SEE IF HE WOULD LIKE TO GET A FOLLOW UP ABG ON THIS PATIENT THIS EVENING. HE DECLINED TO GET ABG ON THIS PATIENT. NO FURTHER ORDERS RECEIVED.
--- NOTE | 2020-11-23 18:26 | NUR ---
CONTACTED DR. SOLARES REGARDING DECREASED URINE OUPUT. ORDERS RECEIVED TO INCREASE FREQUENCY OF IV LASIX. SEE EMAR.
--- NOTE | 2020-11-23 19:02 | NUR ---
REPORT GIVEN TO ASHLYN CASTILLO
--- NOTE | 2020-11-23 20:00 | NUR ---
PATIENT IS INTERMITTEN AWAKE CONFUSED SPEECH, AGREED TO WATER, DIFFICULT UNDER STANDING, SOAKED SPONGE AND PATIENT CHEWED ON SPOMGE AND SWALLOWED WATER, NO ATTEMPT MADE FOR MORE OR FREE LIQUID CAUTION FOR CHOKING
[2020-11-24] VITALS (1084 sets, daily range): BP systolic 109–148; BP diastolic 70–98; PULSE 74–100; TEMP 97.4–99.4; O2SAT 48–100
[2020-11-24 05:10] LABS: MEAN CELL VOLUME 94 fl (80.0-100.0); MEAN CORPUSCULAR HGB CONC 30 g/dl (33.0-37.0); MEAN PLATELET VOLUME 10.1 fl (7.4-10.4); PLATELET COUNT 200 K/mm3 (130-400); RED BLOOD COUNT 2.69 M/mm3 (4.20-5.60); REDCELL DISTRIBUTION WIDTH-CV 17.3 % (11.5-14.5)
[2020-11-24 05:19] LABS: HEMATOCRIT 25.4 % (42.0-52.0); HEMOGLOBIN 7.6 g/dl (13.5-18.0); MEAN CORPUSCULAR HEMOGLOBIN 28 pg (27.0-31.0)
[2020-11-24 05:25] LABS: CALCIUM 7.6 mg/dL (8.4-10.2); CREATININE, serum 3.82 (0.66-1.25)
[2020-11-24 05:34] LABS: BAND 6 % (0-10); EOSINOPHIL 6 % (0-4); LYMPHOCYTE 5 % (20.0-51.0); NEUTROPHILS 82 % (42.0-75.2)
[2020-11-24 05:35] LABS: ANISOCYTOSIS 1+; HYPOCHROMIA 3+; PLATELET ESTIMATE NORMAL (NORMAL)
--- NOTE | 2020-11-24 17:32 | NUR ---
PT has elevated temperature. Hospitalist notified. New blood cultures ordered. Tylenol given as ordered in eMAR.
--- NOTE | 2020-11-24 20:00 | NUR ---
Pt states having "anxiety and PTSD right now, I need a xanax and seroquel help me get through this" Pt SpO2 92-94%, HR:98-115, BP stable, RR 20-42 depending on anxiety level. Pt respirations at times are equal, unlabored yet tachypnic - other times pt appears to gasp for air and mumbles incoherently. If pt is talked firmly to, pt will fully open eyes, make eye contact and speak more clearly and answer appropriatly. AGUILAR Mckenzie notified
--- NOTE | 2020-11-24 23:25 | NUR ---
Report provided to ASHLYN Siddiqui - care relinquished at this time
[2020-11-25] VITALS (261 sets, daily range): BP systolic 115–127; BP diastolic 61–71; PULSE 73–96; TEMP 98.1–98.4; O2SAT 39–100
--- NOTE | 2020-11-25 02:24 | NUR ---
0210 RESP CODE CALLED AND PT EMERGENTLY INTUBATED, UNABLE TO LOCATED PULSE SO COMMPRESSIONS WERE STARTED. PULSE WAS LOCATED, COMPRESSIONS WERE STOPPED. PT INTUBATED AT 0218 BY ED MD. RT, SHINGLES ROOFER, AND COURT ASSISTANT AT BEDSIDE. WILL UPDATE EICU AND START PROPOFOL AND FENTANYL FOR SEDATION AND PAIN.
[2020-11-25 02:35] LABS: HEMATOCRIT 29.7 % (42.0-52.0); HEMOGLOBIN 9.2 g/dl (13.5-18.0); MEAN CELL VOLUME 92 fl (80.0-100.0); MEAN CORPUSCULAR HEMOGLOBIN 29 pg (27.0-31.0); MEAN CORPUSCULAR HGB CONC 31 g/dl (33.0-37.0); MEAN PLATELET VOLUME 10.4 fl (7.4-10.4); PLATELET COUNT 280 K/mm3 (130-400); RED BLOOD COUNT 3.22 M/mm3 (4.20-5.60); REDCELL DISTRIBUTION WIDTH-CV 17.5 % (11.5-14.5)
[2020-11-25 02:40] LABS: CALCIUM 8.1 mg/dL (8.4-10.2); CREATININE, serum 4.31 (0.66-1.25); MAGNESIUM 3.2 mg/dL (1.6-2.3)
--- NOTE | 2020-11-25 02:55 | NUR ---
OGT PLACED WITH [facility] [place] [facility] [place]ST EXRAY TO CONFIRM ETT COMPLETED
[2020-11-25 03:10] LABS: ANISOCYTOSIS 1+; BAND 9 % (0-10); EOSINOPHIL 5 % (0-4); LYMPHOCYTE 18 % (20.0-51.0); MYELOCYTE 1 % (0-0); NEUTROPHILS 63 % (42.0-75.2); PLATELET ESTIMATE NORMAL (NORMAL)
[2020-11-25 04:09] LABS: ARTERIAL BLD GAS O2 SATURATION 99.2 % (92-100); ARTERIAL BLD GAS TCO2 CT 20.9; ARTERIAL BLOOD GAS BASE EXCESS -5.7 (-2-2); ARTERIAL BLOOD GAS HCO3 19.7 meq/L (22-26); ARTERIAL BLOOD GAS PCO2 38.3 mmHg (35-45); ARTERIAL BLOOD GAS pH 7.33 (7.35-7.45)
[2020-11-25 04:13] LABS: ARTERIAL BLOOD GAS PO2 214.2 mmHg (80-100)
--- NOTE | 2020-11-25 04:19 | NUR ---
Vancomycin Initial Dosing Pharmacy Note Ordering provider: Navjot Reeder MD 35 YO M Indication/duration: SEPSIS (7 DAYS) Goal: 15-20 Hx: DATESCRVTREGIMEN .8717.07 2 GM Q24H BMI: 42.5 Wt: 154.3 kg adjBW: 112.4 kg SCr: 4.31 adjBW estCrCl ~ 37 ML/MIN t 1/2~ 19h Tmax: 99.4 WBC: 13.9 PICC line cultures drawn, previous micro with NGTD Pt loaded with 2gm (~13 mg/kg). History not applicable due to declining renal function. Started a maintenance regimen of 1250mg q24h, Will account for suboptimal load by starting the maintenance regimen early. Pt unlikely to follow population based kinetics and will likely take longer to reach steady state, however pt is at high risk for accumulation 2/2 BMI of 42.5. Will monitor micro and renal plans for need to adjust therapy. Thank you for this dosing consult!
--- NOTE | 2020-11-25 07:56 | NUR ---
PT RECENTLY INTUBATED, DOES NOT QUALIFY FOR SEDATION VACTION AT THIS TIME.
[2020-11-25 08:43] LABS: BASO % 0.2 % (0.0-2.0); EOS # 0.3 (0.0-0.7); EOS % 3.5 % (0-4.0); GRAN # 6.8 (1.4-6.5); GRAN % 81.6 % (42.2-75.2); LYMPH # 0.7 (1.2-3.4); MEAN CELL VOLUME 93 fl (80.0-100.0); MEAN CORPUSCULAR HGB CONC 31 g/dl (33.0-37.0); MEAN PLATELET VOLUME 10.6 fl (7.4-10.4); MONO # 0.4 (0.1-0.6); PLATELET COUNT 201 K/mm3 (130-400); RED BLOOD COUNT 2.46 M/mm3 (4.20-5.60); REDCELL DISTRIBUTION WIDTH-CV 17.7 % (11.5-14.5)
[2020-11-25 08:45] LABS: HEMATOCRIT 22.9 % (42.0-52.0); HEMOGLOBIN 7.2 g/dl (13.5-18.0); MEAN CORPUSCULAR HEMOGLOBIN 29 pg (27.0-31.0)
[2020-11-25 08:57] LABS: CALCIUM 7.1 mg/dL (8.4-10.2); CREATININE, serum 3.95 (0.66-1.25); POTASSIUM 3.7 mmol/L (3.4-5.0)
--- NOTE | 2020-11-25 12:41 | NUR ---
1100 PT LEAVES WITH [facility] after receiving report
--- NOTE | 2020-11-25 13:12 | NUR ---
1110- called [facility] for report
== END 2020-11-25 11:00 | disposition short-term general hospital (02) | DRG 853 ==
LOC: COL.ER 00:05 → MEDICAL 02:13 → PEDS 04:04 → MEDICAL 19:30 → ICU 11-18 15:16 → SURG 11-20 15:09 → ICU 11-22 08:43
PROVIDERS: Hospitalist; Internal Medicine Pulmonary Disease; Nurse Practitioner Family; Physician Assistant; Student in an Organized Health Care Education/Training Program; Surgery; ADMIT Internal Medicine
PROC: 5A09357 Assistance with Respiratory Ventilation, Less than 24 Consecutive Hours, Continuous Positive Airway Pressure (ICD-10-PCS; 2020-11-15)
PROC: 0W9930Z Drainage of Right Pleural Cavity with Drainage Device, Percutaneous Approach (ICD-10-PCS; 2020-11-16)
PROC: 0W9940Z Drainage of Right Pleural Cavity with Drainage Device, Percutaneous Endoscopic Approach (ICD-10-PCS; 2020-11-18)
PROC: 0BCN4ZZ Extirpation of Matter from Right Pleura, Percutaneous Endoscopic Approach (ICD-10-PCS; principal; 2020-11-18 12:00)
PROC: 02HV33Z Insertion of Infusion Device into Superior Vena Cava, Percutaneous Approach (ICD-10-PCS; 2020-11-22)
PROC: 0BH17EZ Insertion of Endotracheal Airway into Trachea, Via Natural or Artificial Opening (ICD-10-PCS; 2020-11-24)
PROC: 5A1935Z Respiratory Ventilation, Less than 24 Consecutive Hours (ICD-10-PCS; 2020-11-24)
DX: A41.9 Sepsis, unspecified organism (principal); J18.9 Pneumonia, unspecified organism; J96.01 Acute respiratory failure with hypoxia; I21.A1 Myocardial infarction type 2; N17.9 Acute kidney failure, unspecified; J91.8 Pleural effusion in other conditions classified elsewhere; G93.40 Encephalopathy, unspecified; I27.20 Pulmonary hypertension, unspecified; I08.3 Combined rheumatic disorders of mitral, aortic and tricuspid valves; D64.9 Anemia, unspecified; E80.6 Other disorders of bilirubin metabolism; Z20.828 Contact with and (suspected) exposure to other viral communicable diseases; R00.0 Tachycardia, unspecified; D72.829 Elevated white blood cell count, unspecified; F32.9 Major depressive disorder, single episode, unspecified; F43.10 Post-traumatic stress disorder, unspecified; F41.9 Anxiety disorder, unspecified; R73.9 Hyperglycemia, unspecified; R94.5 Abnormal results of liver function studies; R41.0 Disorientation, unspecified
CPT/HCPCS: 99222-AI; 99232-AI; 99233-AI; A4314; A7041; A9284; C1751; J0171; J0330; J0456; J0690; J0696; J1100; J1170; J1450; J1630; J1650; J1885; J1940; J2060; J2185; J2250; J2405; J2543; J2704; J3010; J3370; J7030; J7040; J7050; J7060; J7120; Q9967

== ENCOUNTER 2021-03-10 15:30 | Outpatient (RCR) | payer OTHER ==
[~2021-03-10 15:30] MED LIST changes: +SEROQUEL 1100 MG/TAB PO
== END 2021-04-23 | disposition still patient (30) ==
LOC: MKS.ESL.PT
DX: R53.1 Weakness (principal)